=== PATIENT | female | born 1955 | race Caucasian/White ===

== ENCOUNTER 2016-03-15 13:52 | Outpatient (CLI) | payer MEDICARE, OTHER | END 2016-03-15 13:53 | disposition home or self-care (01) | DX: E78.5 Hyperlipidemia, unspecified (principal); I10 Essential (primary) hypertension; M54.9 Dorsalgia, unspecified; R06.09 Other forms of dyspnea; D64.9 Anemia, unspecified ==

== ENCOUNTER 2016-10-09 08:00 | Outpatient (CLI) | payer MEDICARE, OTHER ==
[~2016-10-09 08:00] MED LIST: ALBUTEROL NEB 2.5 MG/3 ML INH ONE
[2016-10-09] MEDS ORDERED: ALBUTEROL NEB 2.5 MG/3 ML INH ONE (13:22)
== END 2016-10-09 23:59 | disposition home or self-care (01) ==
LOC: RT 08:00
PROVIDERS: ATTEND Family Medicine
DX: R91.1 Solitary pulmonary nodule (principal); J44.9 Chronic obstructive pulmonary disease, unspecified
CPT/HCPCS: 94060; 94729; J7613

== ENCOUNTER 2017-11-15 07:40 | Outpatient (CLI) | payer MEDICARE, OTHER ==
[2017-11-15 13:03] LABS: BASOPHILS # (AUTO) 0.1 10^3/uL (0.0-0.1); BASOPHILS % (AUTO) 0.9 %; EOSINOPHILS # (AUTO) 0.2 10^3/uL (0.0-0.7); EOSINOPHILS % (AUTO) 1.5 %; HGB - HEMOGLOBIN 13.1 g/dL (12.0-16.0); LYMPHOCYTES # (AUTO) 2.1 10^3/uL (1.5-3.5); LYMPHOCYTES % (AUTO) 17.6 %; MEAN CORPUSCULAR HEMOGLOBIN 30.6 pg (27.0-31.0); MEAN CORPUSCULAR HGB CONC 34.1 g/dL (32.0-36.0); MEAN CORPUSCULAR VOLUME 89.5 fL (81.0-99.0); MEAN PLATELET VOLUME 8.3 fL (7.9-10.8); MONOCYTES # (AUTO) 0.8 10^3/uL (0.0-1.0); MONOCYTES % (AUTO) 6.5 %; NEUTROPHILS # (AUTO) 8.9 10^3/uL (1.5-6.6); NEUTROPHILS % (AUTO) 73.5 %; PLT - PLATELET COUNT 265 10^3/uL (130-450); RED BLOOD COUNT 4.27 10^6/uL (4.20-5.40); RED CELL DISTRIBUTION WIDTH 13.6 % (12.0-15.0); WHITE BLOOD COUNT 12.1 x10^3/uL (4.8-10.8)
[2017-11-15 13:27] LABS: ALBUMIN 3.7 g/dL (3.2-5.5); ALBUMIN/GLOBULIN RATIO 1.2 (1.0-2.2); ALKALINE PHOSPHATASE 82 IU/L (42-121); ALT ALANINE AMINOTRANSFERASE 16 IU/L (10-60); AST ASPARTATE AMINOTRANSFERASE 17 IU/L (10-42); BILIRUBIN,TOTAL 0.5 mg/dL (0.2-1.0); BUN - BLOOD UREA NITROGEN 15 mg/dL (6-20); CALCIUM 9.2 mg/dL (8.5-10.3); CARBON DIOXIDE - CO2 27 mmol/L (21-32); CHLORIDE 106 mmol/L (101-111); CHOL/HDL RATIO 4.3 (<4.4); CHOLESTEROL 168 mg/dL; CREATININE 0.8 mg/dL (0.4-1.0); GFR - MDRD 72 (>89); GLUCOSE 98 mg/dL (70-100); HDL CHOLESTEROL 39 mg/dL; LDL CHOLESTEROL,CALCULATED 109 mg/dL; LDL/HDL RATIO 2.8 (<4.4); SODIUM 140 mmol/L (135-145); TOTAL PROTEIN 6.7 g/dL (6.7-8.2); VLDL CHOLESTEROL 20 mg/dL
== END 2017-11-15 07:41 | disposition home or self-care (01) ==
LOC: LAB.WCP 07:40
PROVIDERS: ATTEND Physician Assistant
DX: I10 Essential (primary) hypertension (principal); E78.9 Disorder of lipoprotein metabolism, unspecified
CPT/HCPCS: 36415; 80053; 80061; 83721; 85025

== ENCOUNTER 2018-03-28 09:56 | Outpatient (CLI) | payer MEDICARE, OTHER ==
--- NOTE | 2018-03-29 09:11 | Mammography Report ---
Reason: SCREENING MAMMO Procedure Date: 03/28/2018 Accession Number: [id number] / [id number] Procedure: PENNY - Screening Mammo w/Savage CPT Code: FULL RESULT: EXAM: Screening Mammo w/Savage DATE: 03/28/2018 10:31 AM CLINICAL HISTORY: Screening encounter. Family history of breast cancer in the mother at age 60. TECHNIQUE: Bilateral CC and MLO views were obtained. A left laterally exaggerated CC view was obtained. COMPARISON: 09/03/2009 through 10/03/2006. FINDINGS: The breasts demonstrate heterogeneously dense fibroglandular parenchyma bilaterally. There are coarse typically benign calcifications. No suspicious masses, clustered microcalcifications, or regions of architectural distortion are identified. IMPRESSION: Benign findings RECOMMENDATION: Routine annual screening unless otherwise clinically indicated. BIRADS CATEGORY 2: Benign findings STANDARD QUALIFYING STATEMENTS: 1. This examination was not reviewed with the aid of Computer-Aided Detection (CAD). 2. A negative or benign imaging report should not preclude biopsy if clinically suspicious findings are present. 3. Dense breasts may obscure an underlying neoplasm. 4. This examination was reviewed with the aid of 3D breast imaging (tomosynthesis).
== END 2018-03-28 09:57 | disposition home or self-care (01) ==
LOC: DI 09:56
DX: Z12.31 Encounter for screening mammogram for malignant neoplasm of breast (principal); Z80.3 Family history of malignant neoplasm of breast
CPT/HCPCS: 77063; 77067

== ENCOUNTER 2018-04-15 08:00 | Outpatient (CLI) | payer MEDICARE, OTHER ==
[2018-04-15 19:01] LABS: BASOPHILS # (AUTO) 0.1 10^3/uL (0.0-0.1); BASOPHILS % (AUTO) 0.8 %; EOSINOPHILS # (AUTO) 0.2 10^3/uL (0.0-0.7); EOSINOPHILS % (AUTO) 1.7 %; HGB - HEMOGLOBIN 13.6 g/dL (12.0-16.0); LYMPHOCYTES # (AUTO) 2.3 10^3/uL (1.5-3.5); LYMPHOCYTES % (AUTO) 18.4 %; MEAN CORPUSCULAR HEMOGLOBIN 30.5 pg (27.0-31.0); MEAN CORPUSCULAR HGB CONC 33.7 g/dL (32.0-36.0); MEAN CORPUSCULAR VOLUME 90.6 fL (81.0-99.0); MEAN PLATELET VOLUME 8.8 fL (7.9-10.8); MONOCYTES % (AUTO) 7.6 %; NEUTROPHILS % (AUTO) 71.5 %; PLT - PLATELET COUNT 239 10^3/uL (130-450); RED BLOOD COUNT 4.46 10^6/uL (4.20-5.40); RED CELL DISTRIBUTION WIDTH 12.6 % (12.0-15.0); WHITE BLOOD COUNT 12.6 x10^3/uL (4.8-10.8)
[2018-04-15 19:26] LABS: % IRON SATURATION 20 % (20-50); ALBUMIN/GLOBULIN RATIO 1.3 (1.0-2.2); ALKALINE PHOSPHATASE 92 IU/L (42-121); ALT ALANINE AMINOTRANSFERASE 12 IU/L (10-60); AST ASPARTATE AMINOTRANSFERASE 18 IU/L (10-42); BILIRUBIN,TOTAL 0.3 mg/dL (0.2-1.0); BUN - BLOOD UREA NITROGEN 29 mg/dL (6-20); CALCIUM 9.2 mg/dL (8.5-10.3); CARBON DIOXIDE - CO2 25 mmol/L (21-32); CHLORIDE 106 mmol/L (101-111); CREATININE 0.9 mg/dL (0.4-1.0); GFR - MDRD 63 (>89); GLUCOSE 102 mg/dL (70-100); IRON 57 ug/dL (28-170); SODIUM 141 mmol/L (135-145); TOTAL IRON BINDING CAPACITY 284 ug/dL (250-450); TOTAL PROTEIN 7.1 g/dL (6.7-8.2); TRANSFERRIN 203 mg/dL (192-382)
[2018-04-15 20:25] LABS: THYROID STIMULATING HORMONE 0.47 uIU/mL (0.34-5.60)
[2018-04-15 20:37] LABS: FOLATE 16.08 ng/mL (5.90 - >24.8)
== END 2018-04-15 23:59 | disposition home or self-care (01) ==
LOC: LAB.WCP 08:00
PROVIDERS: ATTEND Physician Assistant
DX: R53.83 Other fatigue (principal); F33.1 Major depressive disorder, recurrent, moderate; D64.9 Anemia, unspecified
CPT/HCPCS: 36415; 80053; 82306; 82607; 82746; 83540; 84443; 84466; 85025

== ENCOUNTER 2018-11-11 10:21 | Outpatient (CLI) | payer MEDICARE, OTHER ==
--- NOTE | 2018-11-11 16:43 | CT Report ---
Reason: LUNG CA Procedure Date: 11/11/2018 Accession Number: [id number] / [id number] Procedure: CT - CHEST WO CPT Code: FULL RESULT: EXAM: CT CHEST EXAM DATE: 11/11/2018 10:41 AM. CLINICAL HISTORY: Lung carcinoma. COMPARISONS: CHEST W/O 02/13/2018 11:16 AM CHEST W/O 05/28/2017 2:43 PM. TECHNIQUE: Routine helical CT imaging was performed through the chest. IV contrast: None. Reconstructions: Coronal and sagittal. In accordance with CT protocol optimization, one or more of the following dose reduction techniques were utilized for this exam: automated exposure control, adjustment of mA and/or KV based on patient size, or use of iterative reconstructive technique. FINDINGS: Lungs/Pleura: Left upper lobe nodular density has a part solid appearance today with irregular contours, overall measuring 6 x 9 mm with 5 mm solid component. Nodule was previously more dense measuring 12 x 9 mm by my measurement on 02/13/2018. Stable 3 mm right middle lobe lung nodule on series 4 image 32 and stable 2 mm anterolateral right lower lobe nodule on image 35. Several tiny left apical lung nodules best shown on axial MIP series 9. Similar appearance on prior CT. There are tiny tree-in-bud nodular infiltrates within the peripheral aspects of both lower lobes compatible with bronchiolitis. Small lateral left lower lobe bleb. No pneumothorax or pleural effusion. Mediastinum: Enlarged left thyroid lobe appearing similar to prior CT exams. No bulky mediastinal adenopathy or masses. The heart and great vessels are normal. Bones: Unremarkable. Visualized Abdomen: Unremarkable. Other: None. IMPRESSION: 1. Irregular shaped medial left apical lung nodule has decreased in size since 02/13/2018. Nodule now has part solid appearance, previously more dense. 2. Areas of bilateral bronchiolitis with subtle tree-in-bud nodular infiltrates in bilateral peripheral lower lobes. 3. Stable tiny right middle lobe and right lower lobe lung nodules. 4. Enlarged left thyroid lobe. No significant change. RADIA
== END 2018-11-11 10:22 | disposition home or self-care (01) ==
LOC: DI 10:21
PROVIDERS: ATTEND Internal Medicine Hematology & Oncology
DX: C34.90 Malignant neoplasm of unspecified part of unspecified bronchus or lung (principal); R91.8 Other nonspecific abnormal finding of lung field; E04.9 Nontoxic goiter, unspecified; J21.9 Acute bronchiolitis, unspecified
CPT/HCPCS: 71250

== ENCOUNTER 2019-01-11 09:15 | Outpatient (CLI) | payer MEDICARE, OTHER ==
--- NOTE | 2019-01-11 16:01 | CT Report ---
Reason: CHRONIC SINUSITIS Procedure Date: 01/11/2019 Accession Number: [id number] / [id number] Procedure: CT - Sinuses CPT Code: Final Report FULL RESULT: EXAM: CT SINUS EXAM DATE: 01/11/2019 09:44 AM. HISTORY: 63-year-old presenting with chronic sinusitis type symptoms. Evaluate for sinus pathology. COMPARISONS: HEAD OR NECK SOFT TISSUE 11/20/2017 12:36 PM. TECHNIQUE: Routine multi-axial CT imaging performed through the sinuses. Iodinated IV contrast: None. Reconstructions: Multiplanar reformats. In accordance with CT protocol optimization, one or more of the following dose reduction techniques were utilized for this exam: automated exposure control, adjustment of mA and/or KV based on patient size, or use of iterative reconstructive technique. FINDINGS: RIGHT Frontal: Mild mucosal thickening. Ethmoid: Normal. Maxillary: Normal. Sphenoid: Normal. Drainage Pathways: The frontal recess, ostiomeatal complex and sphenoethmoidal recess are patent and normal. LEFT Frontal: Normal. Ethmoid: Normal. Maxillary: Normal. Sphenoid: Normal. Drainage Pathways: The frontal recess, ostiomeatal complex and sphenoethmoidal recess are patent and normal. Nasal Cavity: Small bilateral jessie bullosa. No nasal polyps or masses seen. Osseous Structures: Unremarkable. Changes hyperostosis frontalis internus. Orbits: Unremarkable. Other: Vascular calcifications of the cavernous ICA segments. IMPRESSION: 1. No significant paranasal sinus mucosal thickening. 2. Visualized major paranasal sinus drainage pathways appear patent. RADIA
== END 2019-01-11 09:16 | disposition home or self-care (01) ==
LOC: DI 09:15
PROVIDERS: ATTEND Physician Assistant
DX: J32.8 Other chronic sinusitis (principal)
CPT/HCPCS: 70486

== ENCOUNTER 2019-09-16 08:52 | Outpatient (CLI) | payer MEDICARE, OTHER | END 2019-09-16 08:53 | disposition home or self-care (01) | LOC: DI 08:52 | PROVIDERS: ATTEND Physician Assistant | DX: I49.3 Ventricular premature depolarization (principal) | CPT/HCPCS: 93306 ==

== ENCOUNTER → 2019-12-10 | Outpatient (CLI) | payer MEDICARE, OTHER | LOC: LAB.WCP 08:00 | PROVIDERS: ATTEND Physician Assistant | DX: R05 Cough (principal); Z20.828 Contact with and (suspected) exposure to other viral communicable diseases ==

== ENCOUNTER 2021-11-15 13:46 | Outpatient (CLI) | payer MEDICARE, OTHER ==
--- NOTE | 2021-11-15 18:10 | Ultrasound Report ---
PROCEDURE: Head or Neck Soft Tissue INDICATIONS: THYROID NODULE TECHNIQUE: Real-time scanning was performed of the thyroid gland, with image documentation. COMPARISON: 11/20/2017 FINDINGS: Right: Thyroid lobe measures 4.7 x 1.7 x 1.8 cm, and is homogeneous in echotexture. Left: Thyroid lobe measures 7.1 x 3.6 x 3.4 cm, and is homogenous in echotexture. Isthmus: 3.3 mm thick. Nodule number: One Location: Left inferior Size: 2.9 x 2.5 x 2.8 centimeters, previously 2.2 x 2.1 x 2.5 cm. Composition: Predominantly solid Echogenicity: Hypoechoic Shape: wider than tall. Margins: Lobulated Echogenic foci: None Total points: 6 ACR TI-RADS category: 4 IMPRESSION: Enlarging nodule in the left lobe of thyroid. Biopsy advised. ACR TI-RADS definitions and recommendations: TI-RADS 1 (benign): 0 points. FNA not needed. TI-RADS 2 (not suspicious): 2 points. FNA not needed. TI-RADS 3 (mildly suspicious): 3 points. "FNA if 2.5 cm or larger, follow up if 1.5 cm or larger (at 1, 3, and 5 years). TI-RADS 4 (moderately suspicious): 4-6 points. "FNA if 1.5 cm or larger, follow up if 1 cm or larger (at 1, 2, 3, and 5 years). TI-RADS 5 (highly suspicious): 7 points or more. "FNA if 1 cm or larger, follow up if 0.5 cm or larger (every year for 5 years). Reviewed by: Kt Palma MD on 11/15/2021 5:09 PM YANDY Approved by: Kt Palma MD on 11/15/2021 5:09 PM AKMANSI Station ID: [id number]
== END 2021-11-15 13:47 | disposition home or self-care (01) ==
LOC: DI 13:46
PROVIDERS: ATTEND Family Medicine
DX: E04.1 Nontoxic single thyroid nodule (principal)

== ENCOUNTER 2021-12-07 09:20 | Outpatient (CLI) | payer MEDICARE, OTHER ==
[2021-12-07] MEDS ORDERED: lidocaine 1% 20 ML MDV ONE (09:24)
[2021-12-07] MEDS ORDERED: lidocaine 1% 20 ML MDV SUBQ ONE (10:39)
--- NOTE | 2021-12-07 11:14 | Ultrasound Report ---
PROCEDURE: FNA Bx w/US Gnd 1st les INDICATIONS: ENLARGING L THYROID NODULE TECHNIQUE: The indications, alternatives, benefits, risks, and complications of the procedure were explained to the patient. Written informed consent was obtained and placed in the chart. The area of interest wa s examined sonographically and a site was chosen for ultrasound guided percutaneous sampling. The sk in was prepared and draped in the usual fashion, and anesthetized with 1% lidocaine infiltrated from the skin down to the lesion. Multiple passes were then performed, with [facility]. A bandage was applied to the area of access at completion of t he study. COMPARISON: 11/15/2021 FINDINGS: Location(s) of lesion(s) sampled: Left inferior [place]: 25 gauge hypodermic needles. Number of passes: 5 Medications: 1% lidocaine for local anaesthesia. Complications: None. IMPRESSION: Successful ultrasound-guided left thyroid fine needle aspiration, with cytology results pending. Reviewed by: Selvin Shipley MD on 12/07/2021 11:13 AM PDT Approved by: Selvin Shipley MD on 12/07/2021 11:13 AM PDT Station ID: [id number]
== END 2021-12-07 09:21 | disposition home or self-care (01) ==
LOC: DI 09:20
PROVIDERS: ATTEND Family Medicine
DX: E04.1 Nontoxic single thyroid nodule (principal)
CPT/HCPCS: 10005

== ENCOUNTER 2022-05-15 14:53 | Outpatient (CLI) | payer MEDICARE, OTHER ==
--- NOTE | 2022-05-15 16:47 | MRI Report ---
PROCEDURE: LUMBAR SPINE WO INDICATIONS: STRAIN OF LUMBAR REGION TECHNIQUE: Noncontrast sagittal T1 spin echo and T2 fast echo, sagittal STIR, axial T1 and T2 fast spin echo thr ough the lumbar spine. In cases with scoliosis, additional coronal T2 fast spin echo may be performe d. COMPARISON: None. FINDINGS: Image quality: Excellent. Alignment and Curvature: There is normal bony alignment. Bone Marrow: Marrow is of normal overall signal. No acute vertebral body compression fractures. Spinal Cord: Conus medullaris terminates at the L1 level. Visualized cord demonstrates normal signa l and size. Paraspinous Soft Tissues: No paravertebral masses. T12-L1: No disc bulge. The foramina and central canal are patent. L1-L2: Endplate degenerative changes with Schmorl's nodes, disc space narrowing on the right, diff use disc bulge and disc osteophytes. Disc bulge is asymmetric to the right causing moderate right and no significant left foraminal stenosis. L2-L3: Endplate degenerative changes and disc space narrowing worse on the right and disc osteophy susan. There is a left foraminal protrusion which causes severe left foraminal stenosis and encroaches upon the lateral recess on the left probably also impinging the exiting L3 nerve root. The central ca nal has moderate to severe stenosis. L3-L4: No significant disc space narrowing. Diffuse disc bulge. No significant foraminal or central canal stenosis. L4-L5: No significant disc space narrowing. Mild diffuse disc bulge and facet hypertrophy on the le ft. Mild bilateral foraminal stenosis. L5-S1: No disc bulge. The foramina and central canal are patent. IMPRESSION: 1. Degenerative disc disease primarily at L1-2 and L2-3 as detailed above. 2. L1-2 has moderate right foraminal stenosis. 3. L2-3 has a left foraminal protrusion causing severe left foraminal stenosis and encroaching upon t he left lateral recess and impinging upon the exiting L3 nerve root. 4. Moderate to severe central canal stenosis of L2-3. Reviewed by: Ambrosio Ritchie on 05/15/2022 4:45 PM PDT Approved by: Ambrosio Ritchie on 05/15/2022 4:45 PM PDT Station ID: [id number]
== END 2022-05-15 14:54 | disposition home or self-care (01) ==
LOC: DI 14:53
PROVIDERS: ATTEND Physical Medicine & Rehabilitation Pain Medicine
DX: M51.36 Other intervertebral disc degeneration, lumbar region (principal); M48.061 Spinal stenosis, lumbar region without neurogenic claudication; M51.16 Intervertebral disc disorders with radiculopathy, lumbar region; M47.816 Spondylosis without myelopathy or radiculopathy, lumbar region

== ENCOUNTER 2022-09-08 09:27 | Day surgery (SDC) | payer MEDICARE, OTHER ==
[2022-09-08] MEDS ORDERED: LACTATED RINGERS 1,000 ML IV ONE (10:08)
--- NOTE | 2022-09-08 10:12 | HISTORY & PHYSICAL EXAMINATION ---
Chief Complaint - Chief Complaint Chief Complaint: here for egd and colonoscopy History of Present Illness - History Obtained From Records Reviewed: yes History obtained from: pt Exam Limitations: none - History of Present Illness HPI Comment/Other: history gerd and possible thickening esophagus on ct done for follow up hx lung cancer. here for colon cancer screening in addition to egd no gi problems History - Past Medical History Cardiovascular: reports: Hypertension, High cholesterol Respiratory: reports: COPD, Other GI: reports: GERD, Chronic constipation, Other : reports: Incontinence HEENT: reports: Chronic sinusitis, Chronic hearing loss, Other Psych: reports: Depression Musculoskeletal: reports: Fibromyalgia, Fatigue, Chronic back pain Derm: reports: Eczema, Psoriasis MRSA Hx?: No - Past Surgical History General: reports: Appendectomy, Colonoscopy, Other Meds/Allgy - Home Medications Home Medications: Ambulatory Orders Medication Instructions Recorded Confirmed Alprazolam [Xanax] 0.25 mg PO Q8HR PRN 09/07/22 09/07/22 Amlodipine Besylate [Norvasc] 10 mg PO HS 09/07/22 09/07/22 Cyclobenzaprine [Flexeril] 5 mg PO TID PRN 09/07/22 09/07/22 PARoxetine HCL [Paxil] 20 mg PO HS 09/07/22 09/07/22 lisinopriL [Lisinopril] 40 mg PO HS 09/07/22 09/07/22 - Allergies Allergies/Adverse Reactions: Allergies Allergy/AdvReac Type Severity Reaction Status Date / Time No Known Drug Allergies Allergy Verified 01/19/20 14:03 Review of Systems - Other Findings Other Findings: 10 pt ros as above otherwise unremarkable Exam - Vital Signs Vital Signs: Vital Signs x48h Temp Pulse Resp BP Pulse Ox 09/08/22 09:52 36.1 C L 90 11 L 166/80 H 100 - Physical Exam General Appearance: positive: No acute distress, Alert Eyes Bilateral: positive: PERRL, EOMI, No scleral icterus ENT: positive: No signs of dehydration Neck: positive: No JVD, Trachea midline Respiratory: positive: No respiratory distress Cardiovascular: positive: Regular rate & rhythm Abdomen: positive: No distention Neurologic/Psychiatric: positive: Oriented x3 Conclusion/Plan - Problem List (1) Colon cancer screening Conclusion/Plan: plan colonoscopy and egd for gerd and possible thickening esophagus on ct parq held and consent obtained
[2022-09-08] MEDS ORDERED: ALBUTEROL 8 GM INHALER INH ONE (10:16)
--- NOTE | 2022-09-08 10:17 | ANESTHESIA ---
Pre-Anesthesia VS, & Labs - Diagnosis screening + thickened esophagus - Procedure EGD + colonoscopy Vital Signs: Temp Pulse Resp BP Pulse Ox O2 Flow Rate 36.1 C L 90 11 L 166/80 H 100 09/08/22 09:52 09/08/22 09:52 09/08/22 09:52 09/08/22 09:52 09/08/22 09:52 Height: 5 ft 7 in Weight (kg): 78 kg Body Mass Index: 26.9 BMI Classification: Overweight - NPO >8 hours - Is Patient ?: No - Lab Results Lab results reviewed: Yes Home Medications and Allergies Home Medications: Ambulatory Orders Alprazolam [Xanax] 0.25 mg PO Q8HR PRN 09/07/22 Amlodipine Besylate [Norvasc] 10 mg PO HS 09/07/22 Cyclobenzaprine [Flexeril] 5 mg PO TID PRN 09/07/22 PARoxetine HCL [Paxil] 20 mg PO HS 09/07/22 lisinopriL [Lisinopril] 40 mg PO HS 09/07/22 Alprazolam [Xanax] 0.25 mg PO Q8HR PRN 09/07/22 Amlodipine Besylate [Norvasc] 10 mg PO HS 09/07/22 Cyclobenzaprine [Flexeril] 5 mg PO TID PRN 09/07/22 PARoxetine HCL [Paxil] 20 mg PO HS 09/07/22 lisinopriL [Lisinopril] 40 mg PO HS 09/07/22 Allergies/Adverse Reactions: Allergies Allergy/AdvReac Type Severity Reaction Status Date / Time No Known Drug Allergies Allergy Verified 01/19/20 14:03 Anes History & Medical History - Anesthetic History Anesthesia Complications: reports: No previous complications Family history of Anesthesia Complications: Denies Family history of Malignant Hyperthermia: Denies - Medical History Cardiovascular: reports: Hypertension, High cholesterol Pulmonary: reports: COPD, Other Gastrointestinal: reports: GERD, Chronic constipation, Other Urinary: reports: Incontinence Musculoskeletal: reports: Fibromyalgia, Fatigue, Chronic back pain Endocrine/Autoimmune: reports: None Blood Disorders: reports: None Skin: reports: Eczema, Psoriasis Smoking Status: Current every day smoker - Surgical History General: reports: Appendectomy, Colonoscopy, Other Exam General: Alert, Oriented x3, Cooperative Dental: Dentures full Upper, Dentures full Lower Mouth Openin Fingerbreadth Mallampati classification: III Thyromental Distance: 4-6 cm Respiratory: Lungs clear Cardiovascular: Regular rate Plan Anesthesia Type: General, MAC Consent for Procedure(s) Verified and Reviewed: Yes Code Status: Attempt Resuscitation ASA classification: 3-Severe systemic disease Is this case an emergency?: No
[2022-09-08] MEDS ORDERED: PROPOFOL 500 MG/50 ML 500 MG/50 ML VIAL ONE (10:24)
[2022-09-08] MEDS ORDERED: LIDOCAINE-PF 2% 10 ML AMP SUBQ ONE (10:25)
[2022-09-08] MEDS ORDERED: ePHEDrine 50 MG/ML VIAL IVP ONE (10:47)
[2022-09-08] MEDS ORDERED: PROPOFOL 200 MG/20 ML VIAL IVP ONE (10:58)
[2022-09-08] MEDS ORDERED: LACTATED RINGERS 500 ML IV ONE (11:07)
[2022-09-08 11:27] VITALS: BP 124/66
== END 2022-09-08 09:28 | disposition home or self-care (01) ==
LOC: SDS 09:27
PROVIDERS: ATTEND Surgery
PROC: 0DB78ZX Excision of Stomach, Pylorus, Via Natural or Artificial Opening Endoscopic, Diagnostic (ICD-10-PCS; principal; 2022-09-08 10:30)
PROC: 0DBK8ZZ Excision of Ascending Colon, Via Natural or Artificial Opening Endoscopic (ICD-10-PCS; 2022-09-08 10:30)
DX: Z12.11 Encounter for screening for malignant neoplasm of colon (principal); D12.2 Benign neoplasm of ascending colon; K57.30 Diverticulosis of large intestine without perforation or abscess without bleeding; K21.9 Gastro-esophageal reflux disease without esophagitis; K25.4 Chronic or unspecified gastric ulcer with hemorrhage; K29.71 Gastritis, unspecified, with bleeding; J44.9 Chronic obstructive pulmonary disease, unspecified; F17.200 Nicotine dependence, unspecified, uncomplicated
CPT/HCPCS: 43239; 45380; A9270; J7120

== ENCOUNTER 2023-08-28 14:11 | Emergency (ER) | payer MEDICARE, OTHER ==
[2023-08-28 14:34] VITALS: BP 167/110; O2SAT 98
[2023-08-28] MEDS: KETOROLAC 30 MG/ML VIAL IM STA (15:05)
[2023-08-28] MEDS: DEXAMETHASONE 10 MG/ML VIAL PO STA (15:05)
[2023-08-28] MEDS: CHERRY SYRUP 10 ML UDC PO ONE (15:05)
--- NOTE | 2023-08-28 15:07 | ED Physician Documentation ---
PD HPI Fall - Stated complaint Stated Complaint: GLF, LT SIDE PX - Chief complaint Chief Complaint: Back Pain - History obtained from History obtained from: Patient - History of Present Illness Mechanism of injury: Tripped Fall distance: Standing position Where injury occurred: Home Timing - onset: How many months ago (1) Injury(ies) location: Left Uppper Extremity, Left Lower Extremity Quality of pain: Pain Associated symptoms: Paresthesias. No: LOC, AMS, Amnesia, Seizures, Ear drainage, Nasal drainage, Neck pain, Weakness, Dyspnea, Nausea / vomiting, Hematemesis, Abdominal distension Symptoms improve with: Rest Worsens with: Movement, Palpation Contributing factors: No: Anticoagulated, Intoxicated Similar symptoms before: Diagnosis (back injury) Recently seen: Clinic (seen in followup for lung cancer diagnosed in 2017. Had CT results stable. Noted to have HTN.) - Additional information Additional information: 67-year-old Jena Rizzo indicates that she has had a problem with pain in her back from an injury 16 years ago. She has continued to have pain and has not has begun to live with pain on a daily basis. She has been off of pain medications for 3 years and is not interested in starting any type of pain medication. She is coming in here today after having a fall about 1 month ago and not having resolution of her symptoms. She is having pain in her left hip with ambulation and she is having a feeling of instability in the left knee. She landed on her left side. She complains of some pain to her left shoulder as well. Review of Systems Constitutional: denies: Fever Eyes: denies: Decreased vision Ears: denies: Ear pain Nose: denies: Congestion Throat: denies: Sore throat Cardiac: denies: Chest pain / pressure Respiratory: reports: Cough (smoker similar to always) GI: denies: Nausea, Vomiting : denies: Dysuria, Frequency PD PAST MEDICAL HISTORY - Past Medical History Cardiovascular: Hypertension, High cholesterol Respiratory: COPD, Other Endocrine/Autoimmune: None GI: GERD, Chronic constipation, Other : Incontinence HEENT: Chronic sinusitis, Chronic hearing loss, Other Psych: Depression Musculoskeletal: Fibromyalgia, Fatigue, Chronic back pain Derm: Eczema, Psoriasis - Past Surgical History Past Surgical History: No General: Appendectomy, Colonoscopy, Other - Present Medications Home Medications: Ambulatory Orders Medication Instructions Recorded Confirmed Ashwagandha Root Extract 300 mg PO DAILY 08/20/23 08/20/23 [Ashwagandha] Calcium Carb/Magnesium Carb 1 each PO DAILY 08/20/23 08/20/23 [Cidatrine-Tm 975-232 mg Tablet] Potassium Citrate [Potassium] 99 mg PO DAILY 08/20/23 08/20/23 Turmeric Root Extract [Turmeric 500 mg PO DAILY 08/20/23 08/20/23 Curcumin] - Allergies Allergies/Adverse Reactions: Allergies Allergy/AdvReac Type Severity Reaction Status Date / Time codeine AdvReac Respiratory Verified 08/28/23 14:26 - Social History Does the pt smoke?: Yes Smoking Status: Current every day smoker Does the pt drink ETOH?: No Does the pt have substance abuse?: No PD ED PE NORMAL - Vitals Vital signs reviewed: Yes (tachy and hypertensive ) - General General: Alert and oriented X 3, No acute distress, Well developed/nourished - HEENT HEENT: Atraumatic, PERRL, EOMI, Other (rhinophyma is present) - Respiratory Respiratory: No respiratory distress - Back Back: No CVA TTP, No spinal TTP - Derm Derm: Normal color, Warm and dry, No rash - Extremities Extremities: No deformity, No edema, Other (There is pain to direct palpation of the trochanter on the L. Normal ROM with pain to internal rotation. Knee with ligmentous laxity to MCL without pain. 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 Mild to moderate hip osteoarthritis.), EMP independent interpretation of test, See rad report knee L Relevant Findings:: Prelim report reviewed (Impression: No acute bony abnormality.), EMP independent interpretation of test, See rad report PD Medical Decision Making - ED course Complexity details: reviewed results, re-evaluated patient, considered differential, d/w patient ED course: 67-year-old female presenting a month after an injury is complaining about persistence of pain in her hip and knee and feeling that her left knee is unstable. She is resisting any administration of narcotic pain reliever. Today we treated her with dexamethasone and Toradol and I have offered to refer her to orthopedics for prescription for physical therapy and evaluation of potential other interventions. She has no joint effusion to her left knee she does have some ligamentous laxity to the medial collateral ligament. Departure - Departure Disposition: 01 Home, Self Care Clinical Impression: Hip osteoarthritis Qualifiers: Osteoarthritis type: unspecified Laterality: left Qualified Code(s): M16.12 - Unilateral primary osteoarthritis, left hip Strain of left knee Qualifiers: Encounter type: initial encounter Qualified Code(s): S86.912A - Strain of unspecified muscle(s) and tendon(s) at lower leg level, left leg, initial encounter Condition: Stable Instructions: ED Degenerative Joint Disease Follow-Up: Will Silvestre MD [Provider Admit Priv/Credential] - [facility] [Provider Group] Comments: Jena, today your x-rays are without evidence of a fracture. There is evidence of degenerative joint disease in the left hip. The knee does not look like it has any evidence of bony abnormality. Treatment for the this injury is physical therapy and I have given you the name of an orthopedic doctor for follow-up. In addition we have noticed your blood pressure has been elevated on multiple visits and a follow-up to the primary care doctor is indicated. Today for treatment you were given a dose of dexamethasone and Toradol and the Toradol will wear off in about 6 hours the dexamethasone will wear off in about 2 days. Discharge Date/Time: 08/28/23 15:52
--- NOTE | 2023-08-28 15:28 | XRAY Report ---
PROCEDURE: Hip w/Pelvis 2-3V LT INDICATIONS: pain continues 1 month after contusion TECHNIQUE: 2 views of the hip were acquired. COMPARISON: None. FINDINGS: Bones: No fractures or dislocations. No suspicious bony lesions. Nonuniform joint space narrowing with osteophytic lipping of the acetabulum. Soft tissues: No suspicious soft tissue calcifications or masses. IMPRESSION: No acute bony abnormality. Mild to moderate hip osteoarthritis. Reviewed by: Raman James MD on 08/28/2023 3:27 PM PDT Approved by: Raman James MD on 08/28/2023 3:27 PM PDT Station ID: [id number]
--- NOTE | 2023-08-28 15:31 | XRAY Report ---
PROCEDURE: Knee 3V LT INDICATIONS: fall knee pain continues TECHNIQUE: 3 views of the knee(s) were acquired. COMPARISON: None. FINDINGS: Bones: No fractures or dislocations. No suspicious bony lesions. Soft tissues: No knee joint effusion. No suspicious soft tissue calcifications or masses. IMPRESSION: No acute bony abnormality. Reviewed by: Raman James MD on 08/28/2023 3:29 PM PDT Approved by: Raman James MD on 08/28/2023 3:29 PM PDT Station ID: [id number]
== END 2023-08-28 15:52 | disposition home or self-care (01) ==
LOC: ED 14:11
DX: M16.12 Unilateral primary osteoarthritis, left hip (principal); S86.912A Strain of unspecified muscle(s) and tendon(s) at lower leg level, left leg, initial encounter; W10.9XXA Fall (on) (from) unspecified stairs and steps, initial encounter; Y93.89 Activity, other specified; Y92.008 Other place in unspecified non-institutional (private) residence as the place of occurrence of the external cause; F17.200 Nicotine dependence, unspecified, uncomplicated
CPT/HCPCS: 73502; 73562; 96372; 99283; 99284; A9270

== ENCOUNTER 2023-09-09 10:47 | Outpatient (CLI) | payer MEDICARE, OTHER ==
--- NOTE | 2023-09-09 21:44 | XRAY Report ---
PROCEDURE: Hip w/Pelvis 2-3V LT INDICATIONS: HIP PAIN TECHNIQUE: 2 views of the hip were acquired. COMPARISON: 08/28/2023. FINDINGS: Bones: No fractures or dislocations. Mild to moderate bilateral hip joint osteoarthritic changes are seen. No suspicious bony lesions. Soft tissues: No suspicious soft tissue calcifications or masses. IMPRESSION: No acute pelvic or hip fracture. No hip dislocation. Symmetric appearing mild to moderate bilateral h ip joint osteoarthritis. No evidence of avascular necrosis of femoral head. Reviewed by: Talon Yancey MD on 09/09/2023 9:42 PM PDT Approved by: Talon Yancey MD on 09/09/2023 9:42 PM PDT Station ID: [id number]
--- NOTE | 2023-09-09 21:45 | XRAY Report ---
PROCEDURE: Knee 3V LT INDICATIONS: KNEE PAIN TECHNIQUE: 4 views of the knee(s) were acquired. COMPARISON: None. FINDINGS: Bones: No fractures or dislocations. Mild to moderate medial tricompartmental osteoarthritis is see n most notably in medial femoral tibial compartment. No patellar subluxation. No suspicious bony lesi ons. Soft tissues: No knee joint effusion. No suspicious soft tissue calcifications or masses. IMPRESSION: No left knee fracture or dislocation. Mild to moderate tricompartment osteoarthritis in left knee mos t notably in medial femoral tibial compartment. No significant joint effusion. Reviewed by: Talon Yancey MD on 09/09/2023 9:43 PM PDT Approved by: Talon Yancey MD on 09/09/2023 9:43 PM PDT Station ID: [id number]
== END 2023-09-09 10:48 | disposition home or self-care (01) ==
LOC: DI 10:47
PROVIDERS: ATTEND Physician Assistant Surgical
DX: M16.0 Bilateral primary osteoarthritis of hip (principal); M17.12 Unilateral primary osteoarthritis, left knee; I10 Essential (primary) hypertension
CPT/HCPCS: 36415; 80053; 80061; 83036; 83721; 84443; 85025

== ENCOUNTER 2023-09-09 11:09 | Outpatient (CLI) | payer MEDICARE, OTHER ==
[2023-09-09 11:53] LABS: BASOPHILS # (AUTO) 0.1 10^3/uL (0.0-0.1); BASOPHILS % (AUTO) 0.8 %; EOSINOPHILS # (AUTO) 0.2 10^3/uL (0.0-0.7); EOSINOPHILS % (AUTO) 1.8 %; HCT - HEMATOCRIT 45.8 % (37.0-47.0); HGB - HEMOGLOBIN 14.5 g/dL (12.0-16.0); LYMPHOCYTES # (AUTO) 2.7 10^3/uL (1.5-3.5); LYMPHOCYTES % (AUTO) 20.3 %; MEAN CORPUSCULAR HEMOGLOBIN 28.9 pg (27.0-31.0); MEAN CORPUSCULAR HGB CONC 31.7 g/dL (32.0-36.0); MEAN CORPUSCULAR VOLUME 91.4 fL (81.0-99.0); MEAN PLATELET VOLUME 8.8 fL (7.9-10.8); MONOCYTES # (AUTO) 0.9 10^3/uL (0.0-1.0); MONOCYTES % (AUTO) 6.8 %; NEUTROPHILS # (AUTO) 9.4 10^3/uL (1.5-6.6); NEUTROPHILS % (AUTO) 69.9 %; PLT - PLATELET COUNT 231 10^3/uL (130-450); RED BLOOD COUNT 5.01 10^6/uL (4.20-5.40); RED CELL DISTRIBUTION WIDTH 13.1 % (12.0-15.0); WHITE BLOOD COUNT 13.4 x10^3/uL (4.8-10.8)
[2023-09-09 12:10] LABS: ALBUMIN 4.4 g/dL (3.2-5.5); ALBUMIN/GLOBULIN RATIO 1.5 (1.0-2.2); ALKALINE PHOSPHATASE 96 IU/L (42-121); ALT ALANINE AMINOTRANSFERASE 8 IU/L (10-60); AST ASPARTATE AMINOTRANSFERASE 13 IU/L (10-42); BILIRUBIN,TOTAL 0.5 mg/dL (0.2-1.0); BUN - BLOOD UREA NITROGEN 15 mg/dL (6-20); CALCIUM 9.9 mg/dL (8.5-10.3); CARBON DIOXIDE - CO2 29 mmol/L (21-32); CHLORIDE 106 mmol/L (101-111); CHOL/HDL RATIO 4.9 (<4.4); CHOLESTEROL 222 mg/dL; CREATININE 0.9 mg/dL (0.6-1.3); GFR - MDRD 62 (>89); GLUCOSE 99 mg/dL (74-104); HDL CHOLESTEROL 45 mg/dL; LDL CHOLESTEROL,CALCULATED 141 mg/dL; LDL/HDL RATIO 3.1 (<4.4); POTASSIUM 4.7 mmol/L (3.5-4.5); SODIUM 141 mmol/L (135-145); TOTAL PROTEIN 7.3 g/dL (6.4-8.9); TRIGLYCERIDES 179 mg/dL; VLDL CHOLESTEROL 36 mg/dL
[2023-09-09 12:34] LABS: THYROID STIMULATING HORMONE 0.72 uIU/mL (0.34-5.60)
[2023-09-09 20:01] LABS: ESTIMATED AVERAGE GLUCOSE 100 mg/dL (70-100); HEMOGLOBIN A1c% 5.1 % (4.27-6.07)
== END 2023-09-09 11:10 | disposition home or self-care (01) ==
LOC: LAB 11:09
DX: I10 Essential (primary) hypertension (principal)
CPT/HCPCS: 36415; 80053; 80061; 83036; 83721; 84443; 85025

== ENCOUNTER 2023-10-30 13:52 | Outpatient (CLI) | payer MEDICARE, OTHER ==
--- NOTE | 2023-10-31 11:36 | Mammography Report ---
BILATERAL DIGITAL SCREENING MAMMOGRAM 3D/2D: 10/30/2023 CLINICAL: Routine screening. Family history of breast cancer. Comparison is made to exam dated: 03/28/2018 mammogram - [facility]. Both breasts are heterogeneously dense, which may obscure small masses (category c / 51-75% glandular tissue). There are benign calcifications in the left breast. No significant masses, calcifications, or other findings are seen in either breast. There has been no significant interval change. IMPRESSION: BENIGN There is no mammographic evidence of malignancy. A 1 year screening mammogram is recommended. Based on the Tyrer Cuzick model (a risk assessment model) the patient's lifetime risk is 15.0% and he r 10 year risk is 9.6%. According to the ACR, ACS, and NCCN guidelines, an annual breast MRI exam corey ng with mammogram is recommended if the patient's lifetime risk is 20% or greater. This exam was interpreted at Station ID: [id number]. NOTE: For mammograms, a report in lay terms will be sent to the patient. Approximately 15% of breast malignancies will not be visualized mammographically. In the management of a palpable breast mass, a negative mammogram must not discourage biopsy of a clinically suspicious lesion. Electronically Signed By: Power [email or web address]:10/30/2023 15:57:44 letter sent: No_Letter ACR BI-RADS Category 2: Benign Finding(s) 3342F PARENCHYMAL PATTERN: (D) - The breast(s) demonstrate(s) heterogeneously dense fibroglandular [place]. BI-RADS CATEGORY: (2) - 2 RECOMMENDATION: (ANNUAL) - Recommend routine annual screening mammography. [id number] 1 year screening LATERALITY: (B)
== END 2023-10-30 13:53 | disposition home or self-care (01) ==
LOC: DI 13:52
PROVIDERS: ATTEND Internal Medicine Hematology & Oncology
DX: Z12.31 Encounter for screening mammogram for malignant neoplasm of breast (principal); R92.333 Mammographic heterogeneous density, bilateral breasts; Z80.3 Family history of malignant neoplasm of breast